=== PATIENT | female | born 1945 | race Caucasian/White ===

== ENCOUNTER 2019-05-04 11:53 | Emergency (ER) | payer OTHER ==
[~2019-05-04] VITALS: Ht 172.7 cm; Wt 97.5 kg
[~2019-05-04 11:53] MED LIST: AMOXICILLIN 50500 MG PO; AUGMENTIN 875875 MG PO; FLONASE 0.05%50 MCG NASAL; LEVAQUIN 500 M500 M2 PO; PREDNISONE 20 M20 M1 PO
[2019-05-04 12:37] LABS: ABSOLUTE BASOPHILS 0.1 thou/uL (0.0-0.2); ABSOLUTE EOSINOPHILS 0.1 thou/uL (0.0-0.7); ABSOLUTE LYMPHOCYTES 1.8 thou/uL (0.8-5.3); ABSOLUTE MONOCYTES 0.4 thou/uL (0.0-1.2); ABSOLUTE NEUTROPHILS 7.3 thou/uL (1.6-8.1); BASOPHILS 0.7 %; EOSINOPHILS 1.1 %; HEMATOCRIT 38.8 % (37.0-47.0); HEMOGLOBIN 12.9 gm/dL (12.0-15.0); LYMPHOCYTES 18.5 %; MCH 26.6 pg (26.0-34.0); MCHC 33.1 g/dL (28.0-37.0); MCV 80.3 fL (80.0-100.0); MONOCYTES 4.5 %; MPV 8.3 fl. (7.2-11.1); NUCLEATED RBCS 0 /100WBC; PLATELET COUNT* 376 thou/uL (150-400); POLYS 75.2 %; RBC 4.84 mil/uL (4.20-5.00); RDW-CV 14.3 % (10.5-14.5); WBC 9.7 thou/uL (4.0-11.0)
[2019-05-04 12:42] LABS: CALCIUM 8.3 mg/dL (8.5-10.1); POTASSIUM 3.7 mmol/L (3.5-5.1)
[2019-05-04 12:47] LABS: ALBUMIN 3.4 g/dL (3.4-5.0); TOTAL BILIRUBIN 0.6 mg/dL (<0.1-1.0); TOTAL PROTEIN 8.4 g/dL (6.4-8.2)
--- NOTE | 2019-05-04 13:50 | EKG ---
[place] [address] ELECTROCARDIOGRAM REPORT Name: LAURA VALDEZ Room: [facility]#: [id number] Admission: 05/04/19 Attend Phys: Discharge: Date of : 47 Date of Service: 05/04/19 1201 Report #: [id number] THIS REPORT FOR: //name// [facility] ED Test Date: 2019-05-04 Test Time: 12:01:10 Pat Name: LAURA VALDEZ Department: Room: Gender: F [employer]: [facility] : 1945 Requested By: Stephani Reilly Order Number: [id number] MD: Shun Haas Measurements Intervals [place] Rate: 87 P: 74 MA: 170 QRS: 28 QRSD: 101 T: 34 QT: 379 QTc: 456 Interpretive Statements Sinus rhythm Baseline wander in lead(s) V2,V4,V5,V6 Compared to ECG 09/23/2016 08:19:07 Sinus tachycardia no longer present Electronically Signed On 05-04-2019 13:49:58 [employer] by Shun Haas [email or web address] <ELECTRONICALLY SIGNED> By: Shun Haas MD, [facility] 05/04/19 1349 1201 1201 Shun Haas MD, [facility] /EPI
[2019-05-04] MEDS ORDERED: DIAZEPAM 5 MG5 M1 PO (14:43)
[2019-05-04] MEDS ORDERED: MEDROLDOSEPACK PO (14:43)
[2019-05-04 14:44] LABS: URINE BILIRUBIN NEGATIVE (Negative); URINE BLOOD TRACE (Negative); URINE CLARITY CLEAR; URINE COLOR YELLOW; URINE GLUCOSE-RANDOM NEGATIVE (Negative); URINE KETONES NEGATIVE (Negative); URINE LEUKOCYTES-REFLEX 1+ (Negative); URINE NITRITE-REFLEX NEGATIVE (Negative); URINE PROTEIN NEGATIVE (Negative); URINE SPECIFIC GRAVITY >= 1.030 (1.005-1.030); URINE UROBILINOGEN 0.2 E.U./dl (0.2-1.0)
[2019-05-04 15:01] LABS: CASTS None Seen /LPF (None Seen); CRYSTALS None Seen /LPF (None Seen); SQUAMOUS 0-3 Few /LPF (0-3); URINE RBC 0-2 Rare /HPF (0-2); URINE WBC-REFLEX 0-5 Rare /HPF (0-5)
[2019-05-04 15:19] VITALS: BP 169/67
== END 2019-05-04 15:20 | disposition home or self-care (01) ==
LOC: M.ERS 11:53
PROVIDERS: Personal Emergency Response Attendant
DX: R07.89 Other chest pain (principal)